=== PATIENT | male | born 1945 | race Caucasian/White ===

== ENCOUNTER → 2018-02-16 | Outpatient (REF) | payer MEDICARE, OTHER | LOC: M LAB REF 16:40 | DX: L03.116 Cellulitis of left lower limb (principal) | CPT/HCPCS: 87186 ==

== ENCOUNTER 2018-03-14 16:42 | Inpatient (IN) | payer MEDICARE, BC, OTHER ==
[2018-03-14 17:41] LABS: BASO # 0.1 10^3/uL (0.0-0.2); BASO % 2.5 % (0.0-1.0); EOS # 0.5 10^3/uL (0.0-0.50); EOS % 8.2 % (0.0-3.0); HEMATOCRIT 30.2 % (42.0-52.0); HEMOGLOBIN 9.7 g/dl (13.5-17.5); IMMATURE GRANULOCYTE % 1.5 % (0-3.0); LYMPH # 0.8 10^3/uL (1.5-4.5); LYMPH % 14.2 % (24.0-44.0); MEAN CORPUSCULAR HEMOGLOBIN 29.8 pg (27.0-33.0); MEAN CORPUSCULAR HGB CONC 32.1 g/dl (32.0-36.5); MEAN CORPUSCULAR VOLUME 92.6 fl (80.0-96.0); MONO # 1.3 10^3/uL (0.0-0.8); NEUTROPHILS # 2.7 10^3/uL (1.8-7.7); NEUTROPHILS % 49.6 % (36.0-66.0); PLATELET COUNT, AUTOMATED 148 10^3/uL (150-450); RED BLOOD COUNT 3.26 10^6/uL (4.30-6.10); RED CELL DISTRIBUTION WIDTH 15.6 % (11.5-14.5); WHITE BLOOD COUNT 5.5 10^3/uL (4.0-10.0)
[2018-03-14 18:06] LABS: ANION GAP 10 MEQ/L (8-16); BLOOD UREA NITROGEN 25 MG/DL (7-18); CALCIUM LEVEL 8.5 MG/DL (8.8-10.2); CARBON DIOXIDE LEVEL 24 MEQ/L (21-32); CHLORIDE LEVEL 98 MEQ/L (98-107); CREATININE FOR GFR 1.43 MG/DL (0.70-1.30); GLOMERULAR FILTRATION RATE 51.5 (>42); GLUCOSE, FASTING 266 MG/DL (70-100); POTASSIUM SERUM 4.3 MEQ/L (3.5-5.1); SODIUM LEVEL 132 MEQ/L (136-145)
[2018-03-14] MEDS ORDERED: DEXTROSE 50% 50 ML SYRINGE IV (19:30)
[2018-03-14] MEDS ORDERED: GLUCOSE 4 GM CHEW TABLET PO (19:30)
[2018-03-14] MEDS ORDERED: GLUCAGON FOR INJ 1 MG VIAL (J1610) SC (19:30)
[2018-03-14] MEDS ORDERED: ASPIRIN 325 MG TAB PO (19:30)
[2018-03-14] MEDS: LIDOCAINE 1% MDV 20ML VIAL As Ordered (19:44)
[2018-03-14] MEDS: NS 1,000 ML IV (19:45)
[2018-03-14] MEDS: BUPIVACAINE HCL 0.5% 30 ML VIAL As Ordered (20:37)
[2018-03-14] MEDS: LIDOCAINE 1% SDV INJ 30 ML VIAL As Ordered (20:37)
[2018-03-14] MEDS: VANCOMYCIN 1000 MG/20 ML VIAL (J3370) As Ordered (20:52)
[2018-03-14] MEDS: HumaLOG INSULIN (NovoLOG) PER UNIT SC ×2 (21:00→22:40)
[2018-03-14] MEDS: CARVedilol 12.5 MG TAB PO (21:00)
[2018-03-14] MEDS: **hydrALAZINE HCL** 25 MG TAB PO (21:00)
[2018-03-14] MEDS ORDERED: LIDOCAINE 2% INJ 100 MG/5 ML SDV (FOR ANES.) As Ordered (21:10)
[2018-03-14] MEDS ORDERED: fentaNYL 100 MCG/2 ML INJECTION (J3010) As Ordered (21:10)
[2018-03-14] MEDS ORDERED: PROPOFOL 200 MG/20 ML VIAL As Ordered (21:11)
[2018-03-14] MEDS ORDERED: MIDAZOLAM INJ 2 MG/2 ML VIAL (J2250) As Ordered (21:11)
[2018-03-14 21:16] LABS: LACTIC ACID SEPSIS PROTOCOL 1.4 MMOL/L (0.4-2.0)
[2018-03-14 21:32] LABS: BEDSIDE GLUCOSE 223 MG/DL (83-110)
[2018-03-14] MEDS: LR 1,000 ML IV (21:45)
[2018-03-14] MEDS ORDERED: fentaNYL 100 MCG/2 ML INJECTION (J3010) IV (21:45)
[2018-03-14] MEDS ORDERED: ONDANSETRON 4MG/2ML VIAL (J2405) IV (21:45)
[2018-03-14] MEDS: TAMSULOSIN 0.4 MG CAP PO (22:56)
[2018-03-14] MEDS: ACYCLOVIR 200 MG CAPSULE PO (22:57)
[2018-03-14] MEDS: PIPERACILLIN/TAZOBACTAM SOD 3.375 GM in D5W MINI-BAG PLUS 50 ML IV (23:00)
[2018-03-15] MEDS: VANCOMYCIN HCL 1,000 MG, VIAL MATE ADAPTER 1 EACH in D5W 250 ML IV ×3 (00:18→22:05)
[2018-03-15 00:27] LABS: HEMATOCRIT 25.9 % (42.0-52.0); HEMOGLOBIN 8.1 g/dl (13.5-17.5); MEAN CORPUSCULAR HEMOGLOBIN 29.3 pg (27.0-33.0); MEAN CORPUSCULAR HGB CONC 31.3 g/dl (32.0-36.5); MEAN CORPUSCULAR VOLUME 93.8 fl (80.0-96.0); PLATELET COUNT, AUTOMATED 119 10^3/uL (150-450); RED BLOOD COUNT 2.76 10^6/uL (4.30-6.10); RED CELL DISTRIBUTION WIDTH 15.6 % (11.5-14.5); WHITE BLOOD COUNT 3.9 10^3/uL (4.0-10.0)
[2018-03-15] MEDS: PERCOCET 5MG/325MG TAB PO (00:46)
[2018-03-15] MEDS: MORPHINE 4 MG/ML 1ML VIAL/SYRINGE (J2270) IV (02:58)
[2018-03-15] MEDS: PIPERACILLIN/TAZOBACTAM SOD 3.375 GM in D5W MINI-BAG PLUS 50 ML IV ×4 (03:07→21:09)
[2018-03-15 06:41] LABS: HEMATOCRIT 25.4 % (42.0-52.0); HEMOGLOBIN 7.9 g/dl (13.5-17.5); MEAN CORPUSCULAR HEMOGLOBIN 29.2 pg (27.0-33.0); MEAN CORPUSCULAR HGB CONC 31.1 g/dl (32.0-36.5); MEAN CORPUSCULAR VOLUME 93.7 fl (80.0-96.0); PLATELET COUNT, AUTOMATED 123 10^3/uL (150-450); RED BLOOD COUNT 2.71 10^6/uL (4.30-6.10); RED CELL DISTRIBUTION WIDTH 15.4 % (11.5-14.5); WHITE BLOOD COUNT 3.5 10^3/uL (4.0-10.0)
[2018-03-15 07:01] LABS: HEMATOCRIT 25.4 % (42.0-52.0)
[2018-03-15 07:04] LABS: ANION GAP 9 MEQ/L (8-16); BLOOD UREA NITROGEN 24 MG/DL (7-18); C REACTIVE PROTEIN QUANTITATIV 9.68 MG/DL (0.00-0.30); CALCIUM LEVEL 8.2 MG/DL (8.8-10.2); CARBON DIOXIDE LEVEL 27 MEQ/L (21-32); CHLORIDE LEVEL 99 MEQ/L (98-107); CREATININE FOR GFR 1.35 MG/DL (0.70-1.30); FERRITIN 177 NG/ML (26-388); GLUCOSE, FASTING 232 MG/DL (70-100); IRON (FE) 31 UG/DL (65-175); PERCENT SATURATION 13.2 % (19.7-50.0); POTASSIUM SERUM 3.9 MEQ/L (3.5-5.1); SODIUM LEVEL 135 MEQ/L (136-145); TOTAL IRON BINDING CAPACITY 235 UG/DL (250-450)
[2018-03-15 08:42] LABS: VITAMIN B12 LEVEL > 2000 PG/ML (247-911)
[2018-03-15] MEDS: HumaLOG INSULIN (NovoLOG) PER UNIT SC ×4 (08:58→20:59)
[2018-03-15] MEDS: CYANOCOBALAMIN 500 MCG TAB PO (08:59)
[2018-03-15] MEDS: glyBURIDE 2.5 MG TAB PO (08:59)
[2018-03-15] MEDS: PARoxetine 20 MG TAB PO (08:59)
[2018-03-15] MEDS: PANTOPRAZOLE 40MG TAB (PROTONIX) PO (09:00)
[2018-03-15] MEDS: amLODIPine 10 MG TAB PO (09:00)
[2018-03-15] MEDS: FOLIC ACID 1 MG TAB PO (09:00)
[2018-03-15] MEDS: MULTIVITAMINS/MINERALS THERAP 1 TAB PO (09:00)
[2018-03-15] MEDS: ACYCLOVIR 200 MG CAPSULE PO ×3 (09:00→21:06)
[2018-03-15] MEDS: CARVedilol 12.5 MG TAB PO ×2 (09:00→21:07)
[2018-03-15] MEDS: **hydrALAZINE HCL** 25 MG TAB PO ×3 (09:01→21:09)
[2018-03-15] MEDS: LEVEMIR (INSULIN DETEMIR) 1 UNITS/0.01ML SC (09:01)
[2018-03-15] MEDS: INFLUENZA QUADRIVALENT PF VACCINE 0.5ML SYRINGE (90686) IM (10:24)
[2018-03-15] MEDS: ASCORBIC ACID 500 MG TAB PO ×2 (10:25→21:09)
[2018-03-15] MEDS: FERROUS SULFATE 325MG TAB PO ×2 (10:25→21:08)
[2018-03-15] MEDS: SENOKOT S TAB PO ×2 (10:25→21:08)
[2018-03-15 10:41] LABS: RETIC HEMOGLOBIN EQUIVALENT 26.8 pg (24-36); RETICULOCYTE # 41.3 10^9/L (17-77); RETICULOCYTE % 1.5 % (0.5-1.5)
[2018-03-15] MEDS: NS 1,000 ML IV (10:41)
[2018-03-15 12:15] LABS: BEDSIDE GLUCOSE 230 MG/DL (83-110)
[2018-03-15 13:16] LABS: IMMEDIATE SPIN CROSSMATCH 1 1
[2018-03-15] MEDS: PYRIDOXINE 50 MG TAB PO (14:48)
[2018-03-15 16:46] LABS: BEDSIDE GLUCOSE 205 MG/DL (83-110)
[2018-03-15 20:41] LABS: BEDSIDE GLUCOSE 154 MG/DL (83-110)
[2018-03-15] MEDS: ACETAMINOPHEN TAB 650MG DOSE (2X325MG) PO (21:08)
[2018-03-15] MEDS: HYDROCORTISONE 10 MG TAB PO (21:08)
[2018-03-15] MEDS: TAMSULOSIN 0.4 MG CAP PO (21:08)
[2018-03-16] MEDS: PIPERACILLIN/TAZOBACTAM SOD 3.375 GM in D5W MINI-BAG PLUS 50 ML IV ×2 (01:21→08:50)
[2018-03-16 06:35] LABS: HEMATOCRIT 28.7 % (42.0-52.0); HEMOGLOBIN 9.3 g/dl (13.5-17.5); MEAN CORPUSCULAR HEMOGLOBIN 29.5 pg (27.0-33.0); MEAN CORPUSCULAR HGB CONC 32.4 g/dl (32.0-36.5); MEAN CORPUSCULAR VOLUME 91.1 fl (80.0-96.0); PLATELET COUNT, AUTOMATED 149 10^3/uL (150-450); RED BLOOD COUNT 3.15 10^6/uL (4.30-6.10); RED CELL DISTRIBUTION WIDTH 15.6 % (11.5-14.5); WHITE BLOOD COUNT 3.3 10^3/uL (4.0-10.0)
[2018-03-16] MEDS: NS 1,000 ML IV ×2 (06:47→16:53)
[2018-03-16 06:55] LABS: C REACTIVE PROTEIN QUANTITATIV 9.55 MG/DL (0.00-0.30)
[2018-03-16 06:56] LABS: ANION GAP 8 MEQ/L (8-16); BLOOD UREA NITROGEN 16 MG/DL (7-18); CALCIUM LEVEL 8.6 MG/DL (8.8-10.2); CARBON DIOXIDE LEVEL 27 MEQ/L (21-32); CHLORIDE LEVEL 105 MEQ/L (98-107); GLOMERULAR FILTRATION RATE 52.7 (>42); GLUCOSE, FASTING 196 MG/DL (70-100); MAGNESIUM LEVEL 2.1 MG/DL (1.8-2.4); POTASSIUM SERUM 4.1 MEQ/L (3.5-5.1); SODIUM LEVEL 140 MEQ/L (136-145)
[2018-03-16] MEDS ORDERED: PROPOFOL 200 MG/20 ML VIAL As Ordered (08:24)
[2018-03-16] MEDS ORDERED: LIDOCAINE 2% INJ 100 MG/5 ML SDV (FOR ANES.) As Ordered (08:24)
[2018-03-16] MEDS ORDERED: fentaNYL 100 MCG/2 ML INJECTION (J3010) As Ordered (08:25)
[2018-03-16] MEDS ORDERED: MIDAZOLAM INJ 2 MG/2 ML VIAL (J2250) As Ordered (08:25)
[2018-03-16 08:36] LABS: TRANSFERRIN 182 mg/dL (200-370)
[2018-03-16] MEDS: ZOSYN 3.375 GM VIAL (J2543) As Ordered (08:46)
[2018-03-16] MEDS: BUPIVACAINE HCL 0.5% 30 ML VIAL As Ordered (08:48)
[2018-03-16] MEDS: LIDOCAINE 1% SDV INJ 30 ML VIAL As Ordered (08:48)
[2018-03-16] MEDS: CARVedilol 12.5 MG TAB PO ×2 (09:00→20:48)
[2018-03-16] MEDS: **hydrALAZINE HCL** 25 MG TAB PO ×3 (09:00→20:47)
[2018-03-16] MEDS: LEVEMIR (INSULIN DETEMIR) 1 UNITS/0.01ML SC (09:00)
[2018-03-16] MEDS ORDERED: KETOROLAC 60 MG/2 ML VIAL (J1885) As Ordered (09:04)
[2018-03-16] MEDS ORDERED: ONDANSETRON 4MG/2ML VIAL (J2405) As Ordered (09:04)
[2018-03-16] MEDS: LR 1,000 ML IV (10:15)
[2018-03-16] MEDS ORDERED: fentaNYL 100 MCG/2 ML INJECTION (J3010) IV (10:15)
[2018-03-16] MEDS ORDERED: ONDANSETRON 4MG/2ML VIAL (J2405) IV (10:15)
[2018-03-16 10:48] LABS: BEDSIDE GLUCOSE 200 MG/DL (83-110)
[2018-03-16] MEDS: MULTIVITAMINS/MINERALS THERAP 1 TAB PO (11:08)
[2018-03-16] MEDS: PANTOPRAZOLE 40MG TAB (PROTONIX) PO (11:08)
[2018-03-16] MEDS: HumaLOG INSULIN (NovoLOG) PER UNIT SC ×4 (11:08→20:31)
[2018-03-16] MEDS: SENOKOT S TAB PO ×2 (11:08→20:46)
[2018-03-16] MEDS: ASCORBIC ACID 500 MG TAB PO ×2 (11:09→20:47)
[2018-03-16] MEDS: PARoxetine 20 MG TAB PO (11:09)
[2018-03-16] MEDS: FERROUS SULFATE 325MG TAB PO ×2 (11:09→20:47)
[2018-03-16] MEDS: ACYCLOVIR 200 MG CAPSULE PO ×3 (11:09→20:46)
[2018-03-16] MEDS: FOLIC ACID 1 MG TAB PO (11:10)
[2018-03-16] MEDS: PYRIDOXINE 50 MG TAB PO (11:11)
[2018-03-16] MEDS: amLODIPine 10 MG TAB PO (11:12)
[2018-03-16] MEDS: CYANOCOBALAMIN 500 MCG TAB PO (11:12)
[2018-03-16 12:02] LABS: BEDSIDE GLUCOSE 237 MG/DL (83-110)
[2018-03-16] MEDS ORDERED: LIDOCAINE 1% MDV 20ML VIAL As Ordered (13:05)
[2018-03-16 16:51] LABS: BEDSIDE GLUCOSE 174 MG/DL (83-110)
[2018-03-16] MEDS: ACETAMINOPHEN TAB 650MG DOSE (2X325MG) PO (16:52)
[2018-03-16] MEDS: SODIUM CHLORIDE 0.9% INJ 10 ML SYR IV (18:00)
[2018-03-16 20:12] LABS: BEDSIDE GLUCOSE 243 MG/DL (83-110)
[2018-03-16] MEDS: TAMSULOSIN 0.4 MG CAP PO (20:47)
[2018-03-16 20:50] LABS: VANCOMYCIN LEVEL TROUGH 9.8 UG/ML (10.0-20.0)
[2018-03-16] MEDS: PERCOCET 5MG/325MG TAB PO (20:55)
[2018-03-16] MEDS: VANCOMYCIN HCL 1,000 MG, VIAL MATE ADAPTER 1 EACH in D5W 250 ML IV (20:59)
[2018-03-16] MEDS: HYDROCORTISONE 10 MG TAB PO (21:08)
[2018-03-17] MEDS: NS 1,000 ML IV ×2 (00:10→14:29)
[2018-03-17] MEDS: PERCOCET 5MG/325MG TAB PO ×4 (00:11→23:26)
[2018-03-17] MEDS: SODIUM CHLORIDE 0.9% INJ 10 ML SYR IV ×4 (04:17→16:14)
[2018-03-17 05:16] LABS: HEMATOCRIT 25.4 % (42.0-52.0); HEMOGLOBIN 7.9 g/dl (13.5-17.5); MEAN CORPUSCULAR HEMOGLOBIN 29.5 pg (27.0-33.0); MEAN CORPUSCULAR HGB CONC 31.1 g/dl (32.0-36.5); MEAN CORPUSCULAR VOLUME 94.8 fl (80.0-96.0); PLATELET COUNT, AUTOMATED 144 10^3/uL (150-450); RED BLOOD COUNT 2.68 10^6/uL (4.30-6.10); RED CELL DISTRIBUTION WIDTH 15.5 % (11.5-14.5); WHITE BLOOD COUNT 3.5 10^3/uL (4.0-10.0)
[2018-03-17 05:52] LABS: C REACTIVE PROTEIN QUANTITATIV 5.33 MG/DL (0.00-0.30)
[2018-03-17 05:52] LABS: ANION GAP 9 MEQ/L (8-16); BLOOD UREA NITROGEN 19 MG/DL (7-18); CALCIUM LEVEL 7.5 MG/DL (8.8-10.2); CARBON DIOXIDE LEVEL 26 MEQ/L (21-32); CHLORIDE LEVEL 106 MEQ/L (98-107); CREATININE FOR GFR 1.42 MG/DL (0.70-1.30); GLOMERULAR FILTRATION RATE 51.9 (>42); GLUCOSE, FASTING 214 MG/DL (70-100); MAGNESIUM LEVEL 1.9 MG/DL (1.8-2.4); POTASSIUM SERUM 4.3 MEQ/L (3.5-5.1); SODIUM LEVEL 141 MEQ/L (136-145)
[2018-03-17] MEDS: PANTOPRAZOLE 40MG TAB (PROTONIX) PO (08:20)
[2018-03-17] MEDS: PARoxetine 20 MG TAB PO (08:20)
[2018-03-17] MEDS: MULTIVITAMINS/MINERALS THERAP 1 TAB PO (08:21)
[2018-03-17] MEDS: **hydrALAZINE HCL** 25 MG TAB PO ×3 (08:21→20:25)
[2018-03-17] MEDS: ACYCLOVIR 200 MG CAPSULE PO ×3 (08:21→20:27)
[2018-03-17] MEDS: PYRIDOXINE 50 MG TAB PO (08:21)
[2018-03-17] MEDS: CARVedilol 12.5 MG TAB PO ×2 (08:21→20:26)
[2018-03-17] MEDS: FERROUS SULFATE 325MG TAB PO ×2 (08:21→20:26)
[2018-03-17] MEDS: CYANOCOBALAMIN 500 MCG TAB PO (08:21)
[2018-03-17] MEDS: ASCORBIC ACID 500 MG TAB PO ×2 (08:22→20:26)
[2018-03-17] MEDS: FOLIC ACID 1 MG TAB PO (08:22)
[2018-03-17] MEDS: SENOKOT S TAB PO ×2 (08:22→20:25)
[2018-03-17] MEDS: amLODIPine 10 MG TAB PO (08:22)
[2018-03-17] MEDS: LEVEMIR (INSULIN DETEMIR) 1 UNITS/0.01ML SC (08:23)
[2018-03-17] MEDS: HumaLOG INSULIN (NovoLOG) PER UNIT SC ×4 (08:23→20:27)
[2018-03-17] MEDS ORDERED: SODIUM CHLORIDE 0.9% INJ 10 ML SYR IV (11:15)
[2018-03-17 11:26] LABS: IMMEDIATE SPIN CROSSMATCH 1 1
[2018-03-17 11:29] LABS: PRETREATED FOLATE FOR RBCFOL 16.2 NG/ML; RBC FOLATE 1339.4 NG/ML (280-791)
[2018-03-17 14:26] LABS: BEDSIDE GLUCOSE 164 MG/DL (83-110)
[2018-03-17] MEDS ORDERED: VANCOMYCIN HCL 1,000 MG, VIAL MATE ADAPTER 1 EACH in D5W 250 ML IV (15:00)
[2018-03-17 15:05] LABS: VANCOMYCIN RANDOM 9.8 UG/ML
[2018-03-17] MEDS: VANCOMYCIN HCL 1,000 MG, VIAL MATE ADAPTER 1 EACH in D5W 250 ML IV (15:41)
[2018-03-17 16:29] LABS: BEDSIDE GLUCOSE 250 MG/DL (83-110)
[2018-03-17] MEDS: HYDROCORTISONE 10 MG TAB PO (20:26)
[2018-03-17] MEDS: TAMSULOSIN 0.4 MG CAP PO (20:26)
[2018-03-17] MEDS ORDERED: PILL CRUSHER/CUTTER 1 EACH XX (20:45)
[2018-03-18] MEDS: NS 1,000 ML IV ×3 (03:45→23:02)
[2018-03-18] MEDS: SODIUM CHLORIDE 0.9% INJ 10 ML SYR IV ×4 (05:44→18:00)
[2018-03-18 05:49] LABS: HEMATOCRIT 27.5 % (42.0-52.0); HEMOGLOBIN 8.7 g/dl (13.5-17.5); MEAN CORPUSCULAR HEMOGLOBIN 29.3 pg (27.0-33.0); MEAN CORPUSCULAR HGB CONC 31.6 g/dl (32.0-36.5); MEAN CORPUSCULAR VOLUME 92.6 fl (80.0-96.0); PLATELET COUNT, AUTOMATED 171 10^3/uL (150-450); RED BLOOD COUNT 2.97 10^6/uL (4.30-6.10); RED CELL DISTRIBUTION WIDTH 15.5 % (11.5-14.5); WHITE BLOOD COUNT 3.7 10^3/uL (4.0-10.0)
[2018-03-18 06:14] LABS: C REACTIVE PROTEIN QUANTITATIV 3.31 MG/DL (0.00-0.30)
[2018-03-18 06:15] LABS: ANION GAP 7 MEQ/L (8-16); BLOOD UREA NITROGEN 14 MG/DL (7-18); CALCIUM LEVEL 7.2 MG/DL (8.8-10.2); CARBON DIOXIDE LEVEL 26 MEQ/L (21-32); CHLORIDE LEVEL 109 MEQ/L (98-107); CREATININE FOR GFR 0.98 MG/DL (0.70-1.30); GLOMERULAR FILTRATION RATE > 60.0 (>42); GLUCOSE, FASTING 153 MG/DL (70-100); MAGNESIUM LEVEL 2.1 MG/DL (1.8-2.4); SODIUM LEVEL 142 MEQ/L (136-145)
[2018-03-18] MEDS: HumaLOG INSULIN (NovoLOG) PER UNIT SC ×4 (08:12→20:32)
[2018-03-18] MEDS: LEVEMIR (INSULIN DETEMIR) 1 UNITS/0.01ML SC (08:12)
[2018-03-18] MEDS: VANCOMYCIN HCL 1,000 MG, VIAL MATE ADAPTER 1 EACH in D5W 250 ML IV (08:12)
[2018-03-18] MEDS: SENOKOT S TAB PO ×2 (08:13→20:22)
[2018-03-18] MEDS: FERROUS SULFATE 325MG TAB PO ×2 (08:13→20:22)
[2018-03-18] MEDS: ACYCLOVIR 200 MG CAPSULE PO ×3 (08:13→20:22)
[2018-03-18] MEDS: FOLIC ACID 1 MG TAB PO (08:14)
[2018-03-18] MEDS: PARoxetine 20 MG TAB PO (08:14)
[2018-03-18] MEDS: PYRIDOXINE 50 MG TAB PO (08:14)
[2018-03-18] MEDS: amLODIPine 10 MG TAB PO (08:16)
[2018-03-18] MEDS: CARVedilol 12.5 MG TAB PO ×2 (08:16→20:21)
[2018-03-18] MEDS: CYANOCOBALAMIN 500 MCG TAB PO (08:17)
[2018-03-18] MEDS: **hydrALAZINE HCL** 25 MG TAB PO ×3 (08:17→20:22)
[2018-03-18] MEDS: ASCORBIC ACID 500 MG TAB PO ×2 (08:17→20:22)
[2018-03-18] MEDS: MULTIVITAMINS/MINERALS THERAP 1 TAB PO (08:17)
[2018-03-18] MEDS: PANTOPRAZOLE 40MG TAB (PROTONIX) PO (08:17)
[2018-03-18] MEDS: PERCOCET 5MG/325MG TAB PO ×3 (08:36→20:23)
[2018-03-18 08:50] LABS: VANCOMYCIN RANDOM 10.2 UG/ML
[2018-03-18] MEDS ORDERED: VANCOMYCIN HCL 500 MG in D5W MINI-BAG PLUS 100 ML IV (10:00)
[2018-03-18] MEDS: ONDANSETRON 4MG/2ML VIAL (J2405) IV (10:21)
[2018-03-18] MEDS: VANCOMYCIN HCL 750 MG, VIAL MATE ADAPTER 1 EACH in D5W 250 ML IV (10:21)
[2018-03-18 11:33] LABS: BEDSIDE GLUCOSE 202 MG/DL (83-110)
[2018-03-18 16:34] LABS: BEDSIDE GLUCOSE 160 MG/DL (83-110)
[2018-03-18 20:10] LABS: BEDSIDE GLUCOSE 164 MG/DL (83-110)
[2018-03-18] MEDS: HYDROCORTISONE 10 MG TAB PO (20:22)
[2018-03-18] MEDS: TAMSULOSIN 0.4 MG CAP PO (20:22)
[2018-03-19] MEDS: PERCOCET 5MG/325MG TAB PO ×5 (00:25→22:36)
[2018-03-19] MEDS: SODIUM CHLORIDE 0.9% INJ 10 ML SYR IV ×4 (05:17→17:28)
[2018-03-19 05:59] LABS: HEMATOCRIT 27.1 % (42.0-52.0); HEMOGLOBIN 8.6 g/dl (13.5-17.5); MEAN CORPUSCULAR HEMOGLOBIN 29.5 pg (27.0-33.0); MEAN CORPUSCULAR HGB CONC 31.7 g/dl (32.0-36.5); MEAN CORPUSCULAR VOLUME 92.8 fl (80.0-96.0); PLATELET COUNT, AUTOMATED 184 10^3/uL (150-450); RED BLOOD COUNT 2.92 10^6/uL (4.30-6.10); RED CELL DISTRIBUTION WIDTH 15.1 % (11.5-14.5); WHITE BLOOD COUNT 3.7 10^3/uL (4.0-10.0)
[2018-03-19 06:29] LABS: ANION GAP 4 MEQ/L (8-16); BLOOD UREA NITROGEN 12 MG/DL (7-18); C REACTIVE PROTEIN QUANTITATIV 2.32 MG/DL (0.00-0.30); CALCIUM LEVEL 6.4 MG/DL (8.8-10.2); CARBON DIOXIDE LEVEL 27 MEQ/L (21-32); CHLORIDE LEVEL 109 MEQ/L (98-107); CREATININE FOR GFR 1.01 MG/DL (0.70-1.30); GLOMERULAR FILTRATION RATE > 60.0 (>42); GLUCOSE, FASTING 177 MG/DL (70-100); MAGNESIUM LEVEL 1.9 MG/DL (1.8-2.4); POTASSIUM SERUM 4.1 MEQ/L (3.5-5.1); SODIUM LEVEL 140 MEQ/L (136-145); VANCOMYCIN RANDOM 11.6 UG/ML
[2018-03-19] MEDS: HumaLOG INSULIN (NovoLOG) PER UNIT SC ×4 (07:30→21:00)
[2018-03-19] MEDS: PANTOPRAZOLE 40MG TAB (PROTONIX) PO (08:12)
[2018-03-19] MEDS: LEVEMIR (INSULIN DETEMIR) 1 UNITS/0.01ML SC (08:12)
[2018-03-19] MEDS: FOLIC ACID 1 MG TAB PO (08:12)
[2018-03-19] MEDS: PYRIDOXINE 50 MG TAB PO (08:13)
[2018-03-19] MEDS: PARoxetine 20 MG TAB PO (08:13)
[2018-03-19] MEDS: CARVedilol 12.5 MG TAB PO ×2 (08:13→21:50)
[2018-03-19] MEDS: MULTIVITAMINS/MINERALS THERAP 1 TAB PO (08:13)
[2018-03-19] MEDS: amLODIPine 10 MG TAB PO (08:13)
[2018-03-19] MEDS: ASCORBIC ACID 500 MG TAB PO ×2 (08:13→21:52)
[2018-03-19] MEDS: ACYCLOVIR 200 MG CAPSULE PO ×3 (08:13→21:51)
[2018-03-19] MEDS: **hydrALAZINE HCL** 25 MG TAB PO ×3 (08:14→21:52)
[2018-03-19] MEDS: CYANOCOBALAMIN 500 MCG TAB PO (08:14)
[2018-03-19] MEDS: FERROUS SULFATE 325MG TAB PO ×2 (08:14→21:52)
[2018-03-19] MEDS: SENOKOT S TAB PO ×2 (08:14→21:52)
[2018-03-19] MEDS: VANCOMYCIN HCL 1,000 MG, VIAL MATE ADAPTER 1 EACH in D5W 250 ML IV ×2 (08:14→10:37)
[2018-03-19 11:28] LABS: BEDSIDE GLUCOSE 269 MG/DL (83-110)
[2018-03-19] MEDS: HEPARIN SOD (PORCINE) 5000 UNITS/ML VIAL SQ ×2 (12:04→21:53)
[2018-03-19 12:41] LABS: BEDSIDE GLUCOSE 206 MG/DL (83-110)
[2018-03-19 16:27] LABS: BEDSIDE GLUCOSE 150 MG/DL (83-110)
[2018-03-19 20:40] LABS: BEDSIDE GLUCOSE 175 MG/DL (83-110)
[2018-03-19] MEDS: TAMSULOSIN 0.4 MG CAP PO (21:52)
[2018-03-19] MEDS: HYDROCORTISONE 10 MG TAB PO (21:52)
[2018-03-20] MEDS: SODIUM CHLORIDE 0.9% INJ 10 ML SYR IV ×2 (05:42→05:49)
[2018-03-20] MEDS: PERCOCET 5MG/325MG TAB PO ×2 (05:49→10:45)
[2018-03-20 06:12] LABS: HEMATOCRIT 28.4 % (42.0-52.0); MEAN CORPUSCULAR HEMOGLOBIN 29.7 pg (27.0-33.0); MEAN CORPUSCULAR HGB CONC 31.7 g/dl (32.0-36.5); MEAN CORPUSCULAR VOLUME 93.7 fl (80.0-96.0); PLATELET COUNT, AUTOMATED 212 10^3/uL (150-450); RED BLOOD COUNT 3.03 10^6/uL (4.30-6.10); RED CELL DISTRIBUTION WIDTH 15.1 % (11.5-14.5); WHITE BLOOD COUNT 4.5 10^3/uL (4.0-10.0)
[2018-03-20 06:39] LABS: ANION GAP 8 MEQ/L (8-16); BLOOD UREA NITROGEN 12 MG/DL (7-18); C REACTIVE PROTEIN QUANTITATIV 2.09 MG/DL (0.00-0.30); CALCIUM LEVEL 6.8 MG/DL (8.8-10.2); CARBON DIOXIDE LEVEL 25 MEQ/L (21-32); CHLORIDE LEVEL 109 MEQ/L (98-107); CREATININE FOR GFR 0.99 MG/DL (0.70-1.30); GLOMERULAR FILTRATION RATE > 60.0 (>42); GLUCOSE, FASTING 186 MG/DL (70-100); MAGNESIUM LEVEL 1.9 MG/DL (1.8-2.4); POTASSIUM SERUM 3.7 MEQ/L (3.5-5.1); SODIUM LEVEL 142 MEQ/L (136-145); VANCOMYCIN LEVEL TROUGH 11.7 UG/ML (10.0-20.0)
[2018-03-20] MEDS: VANCOMYCIN HCL 1,000 MG, VIAL MATE ADAPTER 1 EACH in D5W 250 ML IV ×2 (08:20→09:37)
[2018-03-20] MEDS: PARoxetine 20 MG TAB PO (08:21)
[2018-03-20] MEDS: PANTOPRAZOLE 40MG TAB (PROTONIX) PO (08:21)
[2018-03-20] MEDS: SENOKOT S TAB PO (08:21)
[2018-03-20] MEDS: PYRIDOXINE 50 MG TAB PO (08:21)
[2018-03-20] MEDS: ACYCLOVIR 200 MG CAPSULE PO ×2 (08:21→15:47)
[2018-03-20] MEDS: FOLIC ACID 1 MG TAB PO (08:21)
[2018-03-20] MEDS: FERROUS SULFATE 325MG TAB PO (08:22)
[2018-03-20] MEDS: MULTIVITAMINS/MINERALS THERAP 1 TAB PO (08:22)
[2018-03-20] MEDS: CYANOCOBALAMIN 500 MCG TAB PO (08:22)
[2018-03-20] MEDS: amLODIPine 10 MG TAB PO (08:22)
[2018-03-20] MEDS: CARVedilol 12.5 MG TAB PO (08:22)
[2018-03-20] MEDS: **hydrALAZINE HCL** 25 MG TAB PO ×2 (08:22→15:47)
[2018-03-20] MEDS: HumaLOG INSULIN (NovoLOG) PER UNIT SC ×2 (08:23→13:02)
[2018-03-20] MEDS: LEVEMIR (INSULIN DETEMIR) 1 UNITS/0.01ML SC (08:23)
[2018-03-20] MEDS: ASCORBIC ACID 500 MG TAB PO (08:23)
[2018-03-20] MEDS: HEPARIN SOD (PORCINE) 5000 UNITS/ML VIAL SQ (09:37)
[2018-03-20 11:45] LABS: BEDSIDE GLUCOSE 226 MG/DL (83-110)
[2018-03-20 16:14] LABS: BEDSIDE GLUCOSE 73 MG/DL (83-110)
== END 2018-03-20 16:10 | DRG 638 ==
LOC: M SDC 21:59 → M MSPAV 22:00 → M ED 16:42 → M SDC 19:38 → M MSPAV 22:00
PROC: 0HDNXZZ Extraction of Left Foot Skin, External Approach (ICD-10-PCS; principal; 2018-03-14 18:00)
PROC: 0HDNXZZ Extraction of Left Foot Skin, External Approach (ICD-10-PCS; 2018-03-14 20:29)
PROC: 02HV33Z Insertion of Infusion Device into Superior Vena Cava, Percutaneous Approach (ICD-10-PCS; 2018-03-14 20:29)
PROC: 30233N1 Transfusion of Nonautologous Red Blood Cells into Peripheral Vein, Percutaneous Approach (ICD-10-PCS; 2018-03-14 20:29)
DX: E11.621 Type 2 diabetes mellitus with foot ulcer (principal); L03.116 Cellulitis of left lower limb; C90.00 Multiple myeloma not having achieved remission; L02.612 Cutaneous abscess of left foot; D61.818 Other pancytopenia; I12.9 Hypertensive chronic kidney disease with stage 1 through stage 4 chronic kidney disease, or unspecified chronic kidney disease; K21.9 Gastro-esophageal reflux disease without esophagitis; N40.0 Benign prostatic hyperplasia without lower urinary tract symptoms; E11.40 Type 2 diabetes mellitus with diabetic neuropathy, unspecified; M51.36 Other intervertebral disc degeneration, lumbar region; E11.610 Type 2 diabetes mellitus with diabetic neuropathic arthropathy; D63.0 Anemia in neoplastic disease; N17.9 Acute kidney failure, unspecified; N18.3 Chronic kidney disease, stage 3 (moderate); E11.22 Type 2 diabetes mellitus with diabetic chronic kidney disease; B95.62 Methicillin resistant Staphylococcus aureus infection as the cause of diseases classified elsewhere; M65.172 Other infective (teno)synovitis, left ankle and foot; F41.9 Anxiety disorder, unspecified; Z79.4 Long term (current) use of insulin; Z79.82 Long term (current) use of aspirin; Z79.899 Other long term (current) drug therapy

== ENCOUNTER → 2018-03-14 | Outpatient (REF) | payer MEDICARE, OTHER | LOC: M LAB REF 16:44 | DX: L03.116 Cellulitis of left lower limb (principal) ==

== ENCOUNTER 2018-03-20 16:15 | Inpatient (IN) | payer MEDICARE, BC ==
[2018-03-20 16:45] LABS: BEDSIDE GLUCOSE 156 MG/DL (83-110)
[2018-03-20] MEDS ORDERED: GLUCOSE 4 GM CHEW TABLET PO (17:45)
[2018-03-20] MEDS ORDERED: DEXTROSE 50% 50 ML SYRINGE IV (17:45)
[2018-03-20] MEDS ORDERED: GLUCAGON FOR INJ 1 MG VIAL (J1610) SC (17:45)
[2018-03-20 20:12] LABS: BEDSIDE GLUCOSE 218 MG/DL (83-110)
[2018-03-20] MEDS: HEPARIN SOD (PORCINE) 5000 UNITS/ML VIAL SC (21:02)
[2018-03-20] MEDS: CARVedilol 12.5 MG TAB PO (21:03)
[2018-03-20] MEDS: ASCORBIC ACID 500 MG TAB PO (21:03)
[2018-03-20] MEDS: SENOKOT S TAB PO (21:04)
[2018-03-20] MEDS: ACYCLOVIR 200 MG CAPSULE PO (21:04)
[2018-03-20] MEDS: FERROUS SULFATE 325MG TAB PO (21:04)
[2018-03-20] MEDS: TAMSULOSIN 0.4 MG CAP PO (21:05)
[2018-03-20] MEDS: PERCOCET 5MG/325MG TAB PO (21:05)
[2018-03-21] MEDS: PERCOCET 5MG/325MG TAB PO ×3 (02:15→20:44)
[2018-03-21] MEDS: SODIUM CHLORIDE 0.9% INJ 10 ML SYR IV ×2 (05:22→18:03)
[2018-03-21 05:40] LABS: BASO # 0.1 10^3/uL (0.0-0.2); BASO % 2.5 % (0.0-1.0); EOS # 0.1 10^3/uL (0.0-0.50); EOS % 2.3 % (0.0-3.0); HEMATOCRIT 27.8 % (42.0-52.0); HEMOGLOBIN 8.7 g/dl (13.5-17.5); IMMATURE GRANULOCYTE % 0.6 % (0-3.0); LYMPH # 0.9 10^3/uL (1.5-4.5); LYMPH % 18.1 % (24.0-44.0); MEAN CORPUSCULAR HEMOGLOBIN 29.2 pg (27.0-33.0); MEAN CORPUSCULAR HGB CONC 31.3 g/dl (32.0-36.5); MEAN CORPUSCULAR VOLUME 93.3 fl (80.0-96.0); MONO # 1.1 10^3/uL (0.0-0.8); MONO % 21.8 % (0.0-5.0); NEUTROPHILS # 2.6 10^3/uL (1.8-7.7); NEUTROPHILS % 54.7 % (36.0-66.0); PLATELET COUNT, AUTOMATED 221 10^3/uL (150-450); RED BLOOD COUNT 2.98 10^6/uL (4.30-6.10); WHITE BLOOD COUNT 4.8 10^3/uL (4.0-10.0)
[2018-03-21 06:11] LABS: ALBUMIN 2.7 GM/DL (3.2-5.2); ALBUMIN/GLOBULIN RATIO 0.84 (1.00-1.93); ALKALINE PHOSPHATASE 55 U/L (45-117); ALT/SGPT 14 U/L (12-78); ANION GAP 7 MEQ/L (8-16); AST/SGOT 9 U/L (7-37); BILIRUBIN,TOTAL 0.3 MG/DL (0.2-1.0); BLOOD UREA NITROGEN 11 MG/DL (7-18); CALCIUM LEVEL 7.3 MG/DL (8.8-10.2); CARBON DIOXIDE LEVEL 27 MEQ/L (21-32); CHLORIDE LEVEL 109 MEQ/L (98-107); CREATININE FOR GFR 1.01 MG/DL (0.70-1.30); GLOMERULAR FILTRATION RATE > 60.0 (>42); GLUCOSE, FASTING 164 MG/DL (70-100); POTASSIUM SERUM 3.3 MEQ/L (3.5-5.1); SODIUM LEVEL 143 MEQ/L (136-145); TOTAL PROTEIN 5.9 GM/DL (6.4-8.2)
[2018-03-21 06:38] LABS: APPEARANCE, URINE CLEAR (CLEAR); BACTERIA, URINE AUTO NEGATIVE (NEGATIVE); BILIRUBIN, URINE AUTO NEGATIVE (NEGATIVE); BLOOD, URINE BLOOD NEGATIVE (NEGATIVE); COLOR, URINE YELLOW (YELLOW); GLUCOSE, URINE (UA) AUTO 3+ mg/dL (NEGATIVE); KETONE, URINE AUTO TRACE mg/dL (NEGATIVE); LEUKOCYTE ESTERASE, URINE AUTO NEGATIVE (NEGATIVE); NITRITE, URINE AUTO NEGATIVE (NEGATIVE); PROTEIN, URINE AUTO NEGATIVE (NEGATIVE); RBC, URINE AUTO 3 /HPF (0-3); SPECIFIC GRAVITY URINE AUTO 1.014 (1.002-1.035); SQUAMOUS EPITHELIAL CELL UR AU 0 /HPF (0-6); UROBILINOGEN, URINE AUTO 0.2 mg/dL (0.0-2.0); WBC, URINE AUTO 1 /HPF (0-3)
[2018-03-21] MEDS: HumaLOG INSULIN (NovoLOG) PER UNIT SC ×3 (08:33→18:04)
[2018-03-21] MEDS: VANCOMYCIN HCL 1,000 MG, VIAL MATE ADAPTER 1 EACH in D5W 250 ML IV ×2 (08:33→09:52)
[2018-03-21] MEDS: PANTOPRAZOLE 40MG TAB (PROTONIX) PO (08:34)
[2018-03-21] MEDS: CARVedilol 12.5 MG TAB PO ×2 (08:34→20:43)
[2018-03-21] MEDS: amLODIPine 10 MG TAB PO (08:34)
[2018-03-21] MEDS: ACYCLOVIR 200 MG CAPSULE PO ×3 (08:34→20:43)
[2018-03-21] MEDS: FERROUS SULFATE 325MG TAB PO ×2 (08:34→20:42)
[2018-03-21] MEDS: FOLIC ACID 1 MG TAB PO (08:35)
[2018-03-21] MEDS: PYRIDOXINE 50 MG TAB PO (08:35)
[2018-03-21] MEDS: ASCORBIC ACID 500 MG TAB PO ×2 (08:35→20:42)
[2018-03-21] MEDS: HEPARIN SOD (PORCINE) 5000 UNITS/ML VIAL SC ×2 (08:35→20:43)
[2018-03-21] MEDS: PARoxetine 20 MG TAB PO (08:35)
[2018-03-21] MEDS: CYANOCOBALAMIN 500 MCG TAB PO (08:35)
[2018-03-21] MEDS: ASPIRIN 325 MG TAB PO (08:36)
[2018-03-21] MEDS: LEVEMIR (INSULIN DETEMIR) 1 UNITS/0.01ML SC (08:36)
[2018-03-21 09:29] LABS: VANCOMYCIN RANDOM 13.1 UG/ML
[2018-03-21 09:45] LABS: BEDSIDE GLUCOSE 225 MG/DL (83-110)
[2018-03-21 11:36] LABS: BEDSIDE GLUCOSE 217 MG/DL (83-110)
[2018-03-21] MEDS ORDERED: PILL CRUSHER/CUTTER 1 EACH XX (16:15)
[2018-03-21 16:59] LABS: BEDSIDE GLUCOSE 153 MG/DL (83-110)
[2018-03-21] MEDS: **hydrALAZINE HCL** 25 MG TAB PO ×2 (18:04→20:43)
[2018-03-21 20:13] LABS: BEDSIDE GLUCOSE 137 MG/DL (83-110)
[2018-03-21] MEDS: TAMSULOSIN 0.4 MG CAP PO (20:42)
[2018-03-21] MEDS: SENOKOT S TAB PO (20:43)
[2018-03-22 06:48] LABS: BEDSIDE GLUCOSE 150 MG/DL (83-110)
[2018-03-22] MEDS: SODIUM CHLORIDE 0.9% INJ 10 ML SYR IV ×2 (06:56→18:21)
[2018-03-22] MEDS: HumaLOG INSULIN (NovoLOG) PER UNIT SC ×3 (07:58→17:27)
[2018-03-22 08:02] LABS: VANCOMYCIN LEVEL TROUGH 11.5 UG/ML (10.0-20.0)
[2018-03-22 08:02] LABS: C REACTIVE PROTEIN QUANTITATIV 1.64 MG/DL (0.00-0.30)
[2018-03-22] MEDS: VANCOMYCIN HCL 1,000 MG, VIAL MATE ADAPTER 1 EACH in D5W 250 ML IV ×2 (08:58→18:21)
[2018-03-22] MEDS: HEPARIN SOD (PORCINE) 5000 UNITS/ML VIAL SC ×2 (09:28→21:04)
[2018-03-22] MEDS: amLODIPine 10 MG TAB PO (09:29)
[2018-03-22] MEDS: LEVEMIR (INSULIN DETEMIR) 1 UNITS/0.01ML SC (09:29)
[2018-03-22] MEDS: CYANOCOBALAMIN 500 MCG TAB PO (09:29)
[2018-03-22] MEDS: ASCORBIC ACID 500 MG TAB PO ×2 (09:29→21:03)
[2018-03-22] MEDS: PYRIDOXINE 50 MG TAB PO (09:29)
[2018-03-22] MEDS: PARoxetine 20 MG TAB PO (09:29)
[2018-03-22] MEDS: FERROUS SULFATE 325MG TAB PO ×2 (09:31→21:03)
[2018-03-22] MEDS: CARVedilol 12.5 MG TAB PO ×2 (09:31→21:04)
[2018-03-22] MEDS: **hydrALAZINE HCL** 25 MG TAB PO ×3 (09:34→21:04)
[2018-03-22] MEDS: FOLIC ACID 1 MG TAB PO (09:35)
[2018-03-22] MEDS: ACYCLOVIR 200 MG CAPSULE PO ×3 (09:35→21:04)
[2018-03-22] MEDS: PANTOPRAZOLE 40MG TAB (PROTONIX) PO (09:35)
[2018-03-22] MEDS: ASPIRIN 325 MG TAB PO (09:35)
[2018-03-22] MEDS: PERCOCET 5MG/325MG TAB PO ×3 (09:44→23:23)
[2018-03-22 11:44] LABS: BEDSIDE GLUCOSE 182 MG/DL (83-110)
[2018-03-22 16:35] LABS: BEDSIDE GLUCOSE 120 MG/DL (83-110)
[2018-03-22] MEDS: SENOKOT S TAB PO (21:00)
[2018-03-22] MEDS: TAMSULOSIN 0.4 MG CAP PO (21:03)
[2018-03-22 21:04] LABS: BEDSIDE GLUCOSE 148 MG/DL (83-110)
[2018-03-23] MEDS: VANCOMYCIN HCL 1,000 MG, VIAL MATE ADAPTER 1 EACH in D5W 250 ML IV ×2 (06:41→17:12)
[2018-03-23] MEDS: SODIUM CHLORIDE 0.9% INJ 10 ML SYR IV ×3 (06:41→17:12)
[2018-03-23 06:48] LABS: BEDSIDE GLUCOSE 122 MG/DL (83-110)
[2018-03-23 07:32] LABS: VANCOMYCIN LEVEL TROUGH 14.2 UG/ML (10.0-20.0)
[2018-03-23] MEDS: CARVedilol 12.5 MG TAB PO ×2 (08:13→20:10)
[2018-03-23] MEDS: HumaLOG INSULIN (NovoLOG) PER UNIT SC ×3 (08:27→17:11)
[2018-03-23] MEDS: HEPARIN SOD (PORCINE) 5000 UNITS/ML VIAL SC ×2 (08:27→20:11)
[2018-03-23] MEDS: amLODIPine 10 MG TAB PO (08:28)
[2018-03-23] MEDS: FERROUS SULFATE 325MG TAB PO ×2 (08:28→20:09)
[2018-03-23] MEDS: LEVEMIR (INSULIN DETEMIR) 1 UNITS/0.01ML SC (08:28)
[2018-03-23] MEDS: FOLIC ACID 1 MG TAB PO (08:28)
[2018-03-23] MEDS: ACYCLOVIR 200 MG CAPSULE PO ×3 (08:28→20:11)
[2018-03-23] MEDS: **hydrALAZINE HCL** 25 MG TAB PO ×3 (08:29→20:10)
[2018-03-23] MEDS: PANTOPRAZOLE 40MG TAB (PROTONIX) PO (08:29)
[2018-03-23] MEDS: ASPIRIN 325 MG TAB PO (08:30)
[2018-03-23] MEDS: PERCOCET 5MG/325MG TAB PO ×3 (08:30→20:11)
[2018-03-23] MEDS: PYRIDOXINE 50 MG TAB PO (08:30)
[2018-03-23] MEDS: CYANOCOBALAMIN 500 MCG TAB PO (08:30)
[2018-03-23] MEDS: ASCORBIC ACID 500 MG TAB PO ×2 (08:30→20:09)
[2018-03-23] MEDS: PARoxetine 20 MG TAB PO (08:30)
[2018-03-23] MEDS: DIAPER RELIEF PASTE (DESITIN) 60GM TOP (09:00)
[2018-03-23] MEDS: [UNRECOGNIZED DRUG - OTHER] PO (09:00)
[2018-03-23 11:57] LABS: BEDSIDE GLUCOSE 101 MG/DL (83-110)
[2018-03-23 16:31] LABS: BEDSIDE GLUCOSE 165 MG/DL (83-110)
[2018-03-23] MEDS: TAMSULOSIN 0.4 MG CAP PO (20:10)
[2018-03-23] MEDS: SENOKOT S TAB PO (20:11)
[2018-03-23 20:18] LABS: BEDSIDE GLUCOSE 261 MG/DL (83-110)
[2018-03-23] MEDS: ACETAMINOPHEN TAB 650MG DOSE (2X325MG) PO (21:57)
[2018-03-24] MEDS: PERCOCET 5MG/325MG TAB PO ×4 (00:03→17:40)
[2018-03-24 06:36] LABS: BEDSIDE GLUCOSE 290 MG/DL (83-110)
[2018-03-24] MEDS: VANCOMYCIN HCL 1,000 MG, VIAL MATE ADAPTER 1 EACH in D5W 250 ML IV ×2 (06:52→21:46)
[2018-03-24] MEDS: SODIUM CHLORIDE 0.9% INJ 10 ML SYR IV ×3 (06:52→21:00)
[2018-03-24] MEDS: PANTOPRAZOLE 40MG TAB (PROTONIX) PO (08:42)
[2018-03-24] MEDS: ASCORBIC ACID 500 MG TAB PO ×2 (08:42→21:47)
[2018-03-24] MEDS: FERROUS SULFATE 325MG TAB PO ×2 (08:42→21:47)
[2018-03-24] MEDS: FOLIC ACID 1 MG TAB PO (08:42)
[2018-03-24] MEDS: ACYCLOVIR 200 MG CAPSULE PO ×3 (08:42→21:46)
[2018-03-24] MEDS: CYANOCOBALAMIN 500 MCG TAB PO (08:42)
[2018-03-24] MEDS: amLODIPine 10 MG TAB PO (08:43)
[2018-03-24] MEDS: HEPARIN SOD (PORCINE) 5000 UNITS/ML VIAL SC ×2 (08:43→21:46)
[2018-03-24] MEDS: PARoxetine 20 MG TAB PO (08:43)
[2018-03-24] MEDS: ASPIRIN 325 MG TAB PO (08:43)
[2018-03-24] MEDS: PYRIDOXINE 50 MG TAB PO (08:43)
[2018-03-24] MEDS: CARVedilol 12.5 MG TAB PO ×2 (08:44→21:47)
[2018-03-24] MEDS: **hydrALAZINE HCL** 25 MG TAB PO ×3 (08:44→21:53)
[2018-03-24] MEDS: HumaLOG INSULIN (NovoLOG) PER UNIT SC ×3 (08:44→17:40)
[2018-03-24] MEDS: [UNRECOGNIZED DRUG - OTHER] PO (08:45)
[2018-03-24] MEDS: LEVEMIR (INSULIN DETEMIR) 1 UNITS/0.01ML SC (08:45)
[2018-03-24 10:37] LABS: HEMATOCRIT 28.8 % (42.0-52.0); HEMOGLOBIN 9.3 g/dl (13.5-17.5); MEAN CORPUSCULAR HEMOGLOBIN 29.8 pg (27.0-33.0); MEAN CORPUSCULAR HGB CONC 32.3 g/dl (32.0-36.5); MEAN CORPUSCULAR VOLUME 92.3 fl (80.0-96.0); PLATELET COUNT, AUTOMATED 297 10^3/uL (150-450); RED BLOOD COUNT 3.12 10^6/uL (4.30-6.10); WHITE BLOOD COUNT 7.1 10^3/uL (4.0-10.0)
[2018-03-24 10:51] LABS: ANION GAP 12 MEQ/L (8-16); BLOOD UREA NITROGEN 18 MG/DL (7-18); C REACTIVE PROTEIN QUANTITATIV 0.95 MG/DL (0.00-0.30); CALCIUM LEVEL 7.5 MG/DL (8.8-10.2); CARBON DIOXIDE LEVEL 25 MEQ/L (21-32); CHLORIDE LEVEL 103 MEQ/L (98-107); CREATININE FOR GFR 1.13 MG/DL (0.70-1.30); GLOMERULAR FILTRATION RATE > 60.0 (>42); GLUCOSE, FASTING 258 MG/DL (70-100); POTASSIUM SERUM 3.2 MEQ/L (3.5-5.1); SODIUM LEVEL 140 MEQ/L (136-145)
[2018-03-24 12:09] LABS: BEDSIDE GLUCOSE 139 MG/DL (83-110)
[2018-03-24] MEDS: POTASSIUM CHLORIDE 10 MEQ SR TABLET PO ×2 (12:58→13:45)
[2018-03-24] MEDS: KCL 10MEQ/100ML SWI (KRUN) 10 MEQ in APPROPRIATE DILUENT 1 EA IV ×4 (14:33→19:56)
[2018-03-24 16:40] LABS: BEDSIDE GLUCOSE 216 MG/DL (83-110)
[2018-03-24 19:33] LABS: BEDSIDE GLUCOSE 132 MG/DL (83-110)
[2018-03-24 20:46] LABS: BEDSIDE GLUCOSE 126 MG/DL (83-110)
[2018-03-24] MEDS: SENOKOT S TAB PO (21:00)
[2018-03-24] MEDS: traZODone 50 MG TAB PO (21:47)
[2018-03-24] MEDS: TAMSULOSIN 0.4 MG CAP PO (21:54)
[2018-03-24 23:02] LABS: ANION GAP 12 MEQ/L (8-16); BLOOD UREA NITROGEN 20 MG/DL (7-18); CALCIUM LEVEL 8.1 MG/DL (8.8-10.2); CARBON DIOXIDE LEVEL 22 MEQ/L (21-32); CHLORIDE LEVEL 107 MEQ/L (98-107); CREATININE FOR GFR 1.01 MG/DL (0.70-1.30); GLOMERULAR FILTRATION RATE > 60.0 (>42); GLUCOSE, FASTING 116 MG/DL (70-100); POTASSIUM SERUM 3.4 MEQ/L (3.5-5.1); SODIUM LEVEL 141 MEQ/L (136-145)
[2018-03-25] MEDS: PERCOCET 5MG/325MG TAB PO ×3 (00:04→17:55)
[2018-03-25] MEDS: SODIUM CHLORIDE 0.9% INJ 10 ML SYR IV ×3 (05:55→20:09)
[2018-03-25] MEDS: VANCOMYCIN HCL 1,000 MG, VIAL MATE ADAPTER 1 EACH in D5W 250 ML IV ×2 (06:51→18:37)
[2018-03-25 07:41] LABS: BEDSIDE GLUCOSE 237 MG/DL (83-110)
[2018-03-25] MEDS: [UNRECOGNIZED DRUG - OTHER] PO (08:04)
[2018-03-25] MEDS: PYRIDOXINE 50 MG TAB PO (08:04)
[2018-03-25] MEDS: CYANOCOBALAMIN 500 MCG TAB PO (08:05)
[2018-03-25] MEDS: ACYCLOVIR 200 MG CAPSULE PO ×3 (08:05→21:33)
[2018-03-25] MEDS: PARoxetine 20 MG TAB PO (08:05)
[2018-03-25] MEDS: CARVedilol 12.5 MG TAB PO ×2 (08:05→21:34)
[2018-03-25] MEDS: ASPIRIN 325 MG TAB PO (08:05)
[2018-03-25] MEDS: FOLIC ACID 1 MG TAB PO (08:06)
[2018-03-25] MEDS: FERROUS SULFATE 325MG TAB PO ×2 (08:06→21:33)
[2018-03-25] MEDS: ASCORBIC ACID 500 MG TAB PO ×2 (08:06→21:33)
[2018-03-25] MEDS: HEPARIN SOD (PORCINE) 5000 UNITS/ML VIAL SC ×2 (08:06→21:32)
[2018-03-25] MEDS: amLODIPine 10 MG TAB PO (08:06)
[2018-03-25] MEDS: **hydrALAZINE HCL** 25 MG TAB PO ×3 (08:06→21:35)
[2018-03-25] MEDS: PANTOPRAZOLE 40MG TAB (PROTONIX) PO (08:06)
[2018-03-25] MEDS: DIAPER RELIEF PASTE (DESITIN) 60GM TOP (08:07)
[2018-03-25] MEDS: LEVEMIR (INSULIN DETEMIR) 1 UNITS/0.01ML SC (08:08)
[2018-03-25] MEDS: HumaLOG INSULIN (NovoLOG) PER UNIT SC ×3 (08:08→17:51)
[2018-03-25 11:32] LABS: BEDSIDE GLUCOSE 227 MG/DL (83-110)
[2018-03-25] MEDS: POTASSIUM CHLORIDE 10 MEQ SR TABLET PO (13:05)
[2018-03-25 16:30] LABS: BEDSIDE GLUCOSE 157 MG/DL (83-110)
[2018-03-25 19:42] LABS: BEDSIDE GLUCOSE 208 MG/DL (83-110)
[2018-03-25] MEDS: TAMSULOSIN 0.4 MG CAP PO (21:33)
[2018-03-25] MEDS: traZODone 50 MG TAB PO (21:33)
[2018-03-25] MEDS: SENOKOT S TAB PO (21:33)
[2018-03-26 05:55] LABS: BEDSIDE GLUCOSE 187 MG/DL (83-110)
[2018-03-26] MEDS: VANCOMYCIN HCL 1,000 MG, VIAL MATE ADAPTER 1 EACH in D5W 250 ML IV ×2 (06:28→18:17)
[2018-03-26] MEDS: SODIUM CHLORIDE 0.9% INJ 10 ML SYR IV ×3 (06:28→18:18)
[2018-03-26] MEDS: HumaLOG INSULIN (NovoLOG) PER UNIT SC ×3 (07:47→18:17)
[2018-03-26] MEDS: ASPIRIN 325 MG TAB PO (08:32)
[2018-03-26] MEDS: PANTOPRAZOLE 40MG TAB (PROTONIX) PO (08:32)
[2018-03-26] MEDS: [UNRECOGNIZED DRUG - OTHER] PO (08:32)
[2018-03-26] MEDS: ACYCLOVIR 200 MG CAPSULE PO ×3 (08:33→21:01)
[2018-03-26] MEDS: HEPARIN SOD (PORCINE) 5000 UNITS/ML VIAL SC ×2 (08:33→21:02)
[2018-03-26] MEDS: **hydrALAZINE HCL** 25 MG TAB PO ×3 (08:34→21:01)
[2018-03-26] MEDS: LEVEMIR (INSULIN DETEMIR) 1 UNITS/0.01ML SC (08:34)
[2018-03-26] MEDS: POTASSIUM CHLORIDE 10 MEQ SR TABLET PO (08:34)
[2018-03-26] MEDS: amLODIPine 10 MG TAB PO (08:35)
[2018-03-26] MEDS: PYRIDOXINE 50 MG TAB PO (08:35)
[2018-03-26] MEDS: PARoxetine 20 MG TAB PO (08:35)
[2018-03-26] MEDS: CYANOCOBALAMIN 500 MCG TAB PO (08:35)
[2018-03-26] MEDS: CARVedilol 12.5 MG TAB PO ×2 (08:35→20:57)
[2018-03-26] MEDS: FERROUS SULFATE 325MG TAB PO ×2 (08:35→21:02)
[2018-03-26] MEDS: ASCORBIC ACID 500 MG TAB PO ×2 (08:36→21:02)
[2018-03-26] MEDS: FOLIC ACID 1 MG TAB PO (08:36)
[2018-03-26] MEDS: PERCOCET 5MG/325MG TAB PO ×3 (08:42→23:33)
[2018-03-26 11:40] LABS: BEDSIDE GLUCOSE 237 MG/DL (83-110)
[2018-03-26 16:54] LABS: BEDSIDE GLUCOSE 164 MG/DL (83-110)
[2018-03-26 20:41] LABS: BEDSIDE GLUCOSE 186 MG/DL (83-110)
[2018-03-26] MEDS: SENOKOT S TAB PO (21:01)
[2018-03-26] MEDS: TAMSULOSIN 0.4 MG CAP PO (21:01)
[2018-03-26] MEDS: traZODone 50 MG TAB PO (21:02)
[2018-03-27] MEDS: SODIUM CHLORIDE 0.9% INJ 10 ML SYR IV ×2 (06:00→21:40)
[2018-03-27 06:06] LABS: BEDSIDE GLUCOSE 175 MG/DL (83-110)
[2018-03-27] MEDS: VANCOMYCIN HCL 1,000 MG, VIAL MATE ADAPTER 1 EACH in D5W 250 ML IV ×2 (06:27→20:10)
[2018-03-27 07:25] LABS: HEMATOCRIT 28.3 % (42.0-52.0); HEMOGLOBIN 8.9 g/dl (13.5-17.5); MEAN CORPUSCULAR HEMOGLOBIN 29.4 pg (27.0-33.0); MEAN CORPUSCULAR HGB CONC 31.4 g/dl (32.0-36.5); MEAN CORPUSCULAR VOLUME 93.4 fl (80.0-96.0); PLATELET COUNT, AUTOMATED 172 10^3/uL (150-450); RED BLOOD COUNT 3.03 10^6/uL (4.30-6.10); RED CELL DISTRIBUTION WIDTH 16.5 % (11.5-14.5); WHITE BLOOD COUNT 5.6 10^3/uL (4.0-10.0)
[2018-03-27 07:40] LABS: C REACTIVE PROTEIN QUANTITATIV 2.84 MG/DL (0.00-0.30); VANCOMYCIN LEVEL TROUGH 30.8 UG/ML (10.0-20.0)
[2018-03-27] MEDS: POTASSIUM CHLORIDE 10 MEQ SR TABLET PO ×2 (08:02→21:38)
[2018-03-27] MEDS: CYANOCOBALAMIN 500 MCG TAB PO (08:03)
[2018-03-27] MEDS: LEVEMIR (INSULIN DETEMIR) 1 UNITS/0.01ML SC (08:03)
[2018-03-27] MEDS: HumaLOG INSULIN (NovoLOG) PER UNIT SC ×3 (08:03→17:58)
[2018-03-27] MEDS: ASPIRIN 325 MG TAB PO (08:03)
[2018-03-27] MEDS: FOLIC ACID 1 MG TAB PO (08:04)
[2018-03-27] MEDS: amLODIPine 10 MG TAB PO (08:04)
[2018-03-27] MEDS: PARoxetine 20 MG TAB PO (08:04)
[2018-03-27] MEDS: **hydrALAZINE HCL** 25 MG TAB PO ×3 (08:04→21:39)
[2018-03-27] MEDS: CARVedilol 12.5 MG TAB PO ×2 (08:04→21:38)
[2018-03-27] MEDS: ACYCLOVIR 200 MG CAPSULE PO ×3 (08:04→21:39)
[2018-03-27] MEDS: PANTOPRAZOLE 40MG TAB (PROTONIX) PO (08:04)
[2018-03-27] MEDS: FERROUS SULFATE 325MG TAB PO ×2 (08:05→21:38)
[2018-03-27] MEDS: ASCORBIC ACID 500 MG TAB PO ×2 (08:05→21:38)
[2018-03-27] MEDS: HEPARIN SOD (PORCINE) 5000 UNITS/ML VIAL SC ×2 (08:05→21:37)
[2018-03-27] MEDS: [UNRECOGNIZED DRUG - OTHER] PO (08:05)
[2018-03-27] MEDS: PYRIDOXINE 50 MG TAB PO (08:05)
[2018-03-27] MEDS: DIAPER RELIEF PASTE (DESITIN) 60GM TOP (08:10)
[2018-03-27] MEDS: PERCOCET 5MG/325MG TAB PO ×3 (09:59→20:10)
[2018-03-27 11:50] LABS: BEDSIDE GLUCOSE 185 MG/DL (83-110)
[2018-03-27] MEDS: KCL 10MEQ/100ML SWI (KRUN) 10 MEQ in APPROPRIATE DILUENT 1 EA IV ×4 (15:41→19:02)
[2018-03-27 16:14] LABS: MAGNESIUM LEVEL 1.9 MG/DL (1.8-2.4)
[2018-03-27 16:34] LABS: ANION GAP 8 MEQ/L (8-16); BLOOD UREA NITROGEN 15 MG/DL (7-18); CALCIUM LEVEL 8.2 MG/DL (8.8-10.2); CARBON DIOXIDE LEVEL 27 MEQ/L (21-32); CHLORIDE LEVEL 104 MEQ/L (98-107); GLOMERULAR FILTRATION RATE > 60.0 (>42); GLUCOSE, FASTING 189 MG/DL (70-100); SODIUM LEVEL 139 MEQ/L (136-145)
[2018-03-27 17:21] LABS: BEDSIDE GLUCOSE 102 MG/DL (83-110)
[2018-03-27 18:36] LABS: VANCOMYCIN LEVEL TROUGH 19.6 UG/ML (10.0-20.0)
[2018-03-27] MEDS: SENOKOT S TAB PO (21:00)
[2018-03-27 21:38] LABS: BEDSIDE GLUCOSE 194 MG/DL (83-110)
[2018-03-27] MEDS: GABAPENTIN 300 MG CAP PO (21:38)
[2018-03-27] MEDS: TAMSULOSIN 0.4 MG CAP PO (21:38)
[2018-03-27] MEDS: MAGNESIUM OXIDE 400 MG TAB (MAG-OX) PO (21:39)
[2018-03-27] MEDS: traZODone 50 MG TAB PO (22:12)
[2018-03-28 06:39] LABS: BEDSIDE GLUCOSE 181 MG/DL (83-110)
[2018-03-28] MEDS: SODIUM CHLORIDE 0.9% INJ 10 ML SYR IV (06:41)
[2018-03-28] MEDS: PERCOCET 5MG/325MG TAB PO ×2 (06:42→20:34)
[2018-03-28 07:51] LABS: ANION GAP 5 MEQ/L (8-16); BLOOD UREA NITROGEN 15 MG/DL (7-18); CALCIUM LEVEL 8.4 MG/DL (8.8-10.2); CARBON DIOXIDE LEVEL 29 MEQ/L (21-32); CHLORIDE LEVEL 107 MEQ/L (98-107); GLOMERULAR FILTRATION RATE > 60.0 (>42); GLUCOSE, FASTING 200 MG/DL (70-100); POTASSIUM SERUM 3.8 MEQ/L (3.5-5.1); SODIUM LEVEL 141 MEQ/L (136-145)
[2018-03-28] MEDS: LEVEMIR (INSULIN DETEMIR) 1 UNITS/0.01ML SC (08:34)
[2018-03-28] MEDS: HEPARIN SOD (PORCINE) 5000 UNITS/ML VIAL SC ×2 (08:34→20:35)
[2018-03-28] MEDS: MAGNESIUM OXIDE 400 MG TAB (MAG-OX) PO ×2 (08:35→20:33)
[2018-03-28] MEDS: HumaLOG INSULIN (NovoLOG) PER UNIT SC ×3 (08:35→17:31)
[2018-03-28] MEDS: [UNRECOGNIZED DRUG - OTHER] PO (08:36)
[2018-03-28] MEDS: PARoxetine 20 MG TAB PO (08:36)
[2018-03-28] MEDS: ASPIRIN 325 MG TAB PO (08:36)
[2018-03-28] MEDS: PANTOPRAZOLE 40MG TAB (PROTONIX) PO (08:36)
[2018-03-28] MEDS: PYRIDOXINE 50 MG TAB PO (08:37)
[2018-03-28] MEDS: POTASSIUM CHLORIDE 10 MEQ SR TABLET PO ×2 (08:37→20:32)
[2018-03-28] MEDS: FOLIC ACID 1 MG TAB PO (08:37)
[2018-03-28] MEDS: FERROUS SULFATE 325MG TAB PO ×2 (08:37→20:33)
[2018-03-28] MEDS: CYANOCOBALAMIN 500 MCG TAB PO (08:37)
[2018-03-28] MEDS: ASCORBIC ACID 500 MG TAB PO ×2 (08:37→20:34)
[2018-03-28] MEDS: amLODIPine 10 MG TAB PO (08:42)
[2018-03-28] MEDS: ACYCLOVIR 200 MG CAPSULE PO ×3 (08:42→20:33)
[2018-03-28] MEDS: **hydrALAZINE HCL** 25 MG TAB PO ×3 (08:42→20:33)
[2018-03-28] MEDS: CARVedilol 12.5 MG TAB PO ×2 (08:43→20:34)
[2018-03-28 11:37] LABS: BEDSIDE GLUCOSE 180 MG/DL (83-110)
[2018-03-28 12:24] LABS: MAGNESIUM RBC LEVEL 4.4 mg/dL (4.2-6.8)
[2018-03-28 16:36] LABS: BEDSIDE GLUCOSE 185 MG/DL (83-110)
[2018-03-28 20:11] LABS: BEDSIDE GLUCOSE 136 MG/DL (83-110)
[2018-03-28] MEDS: TAMSULOSIN 0.4 MG CAP PO (20:33)
[2018-03-28] MEDS: GABAPENTIN 300 MG CAP PO (20:33)
[2018-03-28] MEDS: SENOKOT S TAB PO (21:00)
[2018-03-28] MEDS: traZODone 50 MG TAB PO (22:14)
[2018-03-29 06:09] LABS: BEDSIDE GLUCOSE 159 MG/DL (83-110)
[2018-03-29] MEDS: PERCOCET 5MG/325MG TAB PO (06:18)
[2018-03-29] MEDS: HumaLOG INSULIN (NovoLOG) PER UNIT SC ×2 (07:30→13:07)
[2018-03-29 07:50] LABS: ANION GAP 6 MEQ/L (8-16); BLOOD UREA NITROGEN 15 MG/DL (7-18); CALCIUM LEVEL 8.5 MG/DL (8.8-10.2); CARBON DIOXIDE LEVEL 28 MEQ/L (21-32); CHLORIDE LEVEL 104 MEQ/L (98-107); CREATININE FOR GFR 1.04 MG/DL (0.70-1.30); GLOMERULAR FILTRATION RATE > 60.0 (>42); GLUCOSE, FASTING 186 MG/DL (70-100); POTASSIUM SERUM 4.2 MEQ/L (3.5-5.1); SODIUM LEVEL 138 MEQ/L (136-145)
[2018-03-29] MEDS: ACYCLOVIR 200 MG CAPSULE PO (08:07)
[2018-03-29] MEDS: PARoxetine 20 MG TAB PO (08:07)
[2018-03-29] MEDS: LEVEMIR (INSULIN DETEMIR) 1 UNITS/0.01ML SC (08:08)
[2018-03-29] MEDS: MAGNESIUM OXIDE 400 MG TAB (MAG-OX) PO (08:08)
[2018-03-29] MEDS: FERROUS SULFATE 325MG TAB PO (08:08)
[2018-03-29] MEDS: **hydrALAZINE HCL** 25 MG TAB PO (08:08)
[2018-03-29] MEDS: POTASSIUM CHLORIDE 10 MEQ SR TABLET PO (08:09)
[2018-03-29] MEDS: ASCORBIC ACID 500 MG TAB PO (08:09)
[2018-03-29] MEDS: amLODIPine 10 MG TAB PO (08:09)
[2018-03-29] MEDS: ASPIRIN 325 MG TAB PO (08:09)
[2018-03-29] MEDS: FOLIC ACID 1 MG TAB PO (08:09)
[2018-03-29] MEDS: CYANOCOBALAMIN 500 MCG TAB PO (08:09)
[2018-03-29] MEDS: CARVedilol 12.5 MG TAB PO (08:10)
[2018-03-29] MEDS: PYRIDOXINE 50 MG TAB PO (08:10)
[2018-03-29] MEDS: PANTOPRAZOLE 40MG TAB (PROTONIX) PO (08:10)
[2018-03-29] MEDS: HEPARIN SOD (PORCINE) 5000 UNITS/ML VIAL SC (08:10)
[2018-03-29] MEDS: [UNRECOGNIZED DRUG - OTHER] PO (08:11)
[2018-03-29] MEDS: DIAPER RELIEF PASTE (DESITIN) 60GM TOP (08:13)
[2018-03-29 13:02] LABS: BEDSIDE GLUCOSE 199 MG/DL (83-110)
== END 2018-03-29 15:50 | disposition home health service (06) | DRG 638 ==
LOC: M PM&R 16:15
PROVIDERS: Physical Medicine & Rehabilitation
DX: E11.621 Type 2 diabetes mellitus with foot ulcer (principal); L02.612 Cutaneous abscess of left foot; C90.00 Multiple myeloma not having achieved remission; L97.528 Non-pressure chronic ulcer of other part of left foot with other specified severity; E11.610 Type 2 diabetes mellitus with diabetic neuropathic arthropathy; I10 Essential (primary) hypertension; R53.81 Other malaise; K21.9 Gastro-esophageal reflux disease without esophagitis; D64.9 Anemia, unspecified; N40.0 Benign prostatic hyperplasia without lower urinary tract symptoms; Z79.82 Long term (current) use of aspirin; Z79.4 Long term (current) use of insulin; Z86.14 Personal history of Methicillin resistant Staphylococcus aureus infection; Z79.899 Other long term (current) drug therapy; E87.6 Hypokalemia

== ENCOUNTER → 2018-04-04 | Outpatient (REF) | payer MEDICARE, OTHER ==
[2018-04-04 15:52] LABS: HEMATOCRIT 32.8 % (42.0-52.0); HEMOGLOBIN 10.2 g/dl (13.5-17.5); MEAN CORPUSCULAR HEMOGLOBIN 29.4 pg (27.0-33.0); MEAN CORPUSCULAR HGB CONC 31.1 g/dl (32.0-36.5); MEAN CORPUSCULAR VOLUME 94.5 fl (80.0-96.0); PLATELET COUNT, AUTOMATED 288 10^3/uL (150-450); RED BLOOD COUNT 3.47 10^6/uL (4.30-6.10); RED CELL DISTRIBUTION WIDTH 15.8 % (11.5-14.5); WHITE BLOOD COUNT 8.9 10^3/uL (4.0-10.0)
[2018-04-04 15:58] LABS: ADD MANUAL DIFFER YES; DIFF SLIDE NUMBER 282; POSITIVE DIFF POS FLAG
[2018-04-04 16:21] LABS: ANION GAP 8 MEQ/L (8-16); ATYPICAL LYMPH 4 % (0-5); BASOPHILS 3 % (0-4); BLOOD UREA NITROGEN 17 MG/DL (7-18); C REACTIVE PROTEIN QUANTITATIV 0.79 MG/DL (0.00-0.30); CALCIUM LEVEL 8.9 MG/DL (8.8-10.2); CARBON DIOXIDE LEVEL 28 MEQ/L (21-32); CHLORIDE LEVEL 100 MEQ/L (98-107); GLOMERULAR FILTRATION RATE 57.4 (>42); GLUCOSE, FASTING 148 MG/DL (70-100); LYMPHOCYTES 5 % (16-52); MONOCYTES 16 % (0-8); NEUTROPHILS 72 % (35-75); PLATELET ESTIMATE NORMAL (NORMAL); SODIUM LEVEL 136 MEQ/L (136-145)
[2018-04-04 16:22] LABS: POLYCHROMASIA 1+
[2018-04-04 16:43] LABS: ERYTHROCYTE SEDIMENTATION RATE 48 mm/hr (0-20)
== END ==
LOC: M SFHCPLAZ 13:05
DX: A49.02 Methicillin resistant Staphylococcus aureus infection, unspecified site (principal)
CPT/HCPCS: 80048

== ENCOUNTER → 2019-01-30 | Outpatient (REF) | payer MEDICARE, OTHER ==
[~2019-01-30] MED LIST: ACYC400T PO; AMLO10TA5 PO; ASPI-1 PO; CALC1TAB27 PO; CARV25TA PO; DEXA4TA PO; FENT1DIS14 TD; FERR1TAB8 PO; FLOM0.4C39 PO; FOLI1TAB11 PO; GAMM1INJ IV; GLYB5TA PO; HYDR-3910 PO; HYDR-4513 PO; KLOR10TA76 PO; LANTINJ4 SC; MAG400TA PO; MULT1TAB10 PO; NOVOINJ3 SC; PANT40TA3 PO; PARO40TA3 PO; POMA4CAP PO; PYRI100T5 PO; SENN1TAB41 PO; VITA100018 PO; VITA500T PO; VITA80003 PO; XGEVINJ SC
== END ==
LOC: M SFHCPLAZ 17:12
PROVIDERS: ATTEND Internal Medicine Infectious Disease
DX: L03.115 Cellulitis of right lower limb (principal)
CPT/HCPCS: 87070; 87077; 87186; 87205; G0463